=== PATIENT | male | born 1940 | race Hispanic/Latino ===

== ENCOUNTER → 2019-06-01 | Outpatient (CLI) | payer MEDICARE ==
[~2019-06-01] MED LIST: CYCL10TA2 PO; GABA300C10 PO; LISI10TA PO; MELO15TA24 PO; METF500T PO
--- NOTE | 2019-06-01 13:19 | DIREP ---
PROCEDURE:XRAY ABDOMEN SINGLE VW COMPARISON:[facility], CT, CT-ABDOMEN /PELVIS W W/O CONTRAST, 07/29/2012, 10:24 AM. INDICATIONS:RUQ PAIN, EPIGASTRIC PAIN FINDINGS: BOWEL GAS PATTERN:Nonobstructive. CALCIFICATIONS:None significant. LUNG BASES:Clear. BONES:Normal. OTHER:No free air. No additional findings. CONCLUSION:No acute abnormalities. Dictated by: Mickey Bledsoe M.D. on 06/01/2019 at 01:16 PM
--- NOTE | 2019-06-01 14:14 | DIREP ---
PROCEDURE:US ABDOMEN LIMITED(SINGLE ORGAN,QUAD) COMPARISON:None. INDICATIONS:RUQ PAIN, EPIGASTRIC PAIN FINDINGS: LIVER:Normal hepatic parenchymal architecture. BILIARY:The gallbladder wall is normal in thickness. There is a small echogenic density adherent to the gallbladder wall consistent with a small polyp. The common bile duct is normal measuring 4.2 mm. PANCREAS:The pancreas is obscured secondary to bowel gas. RIGHT KIDNEY:Normal. OTHER:Negative. No ascites is identified. CONCLUSION:There are findings consistent with a small polyp of the gallbladder wall. Dictated by: Esteban Lott M.D. on 06/01/2019 at 02:13 PM
== END | disposition home or self-care (01) ==
LOC: RAD 10:51
PROVIDERS: ATTEND Nurse Practitioner
DX: R10.11 Right upper quadrant pain (principal); R10.13 Epigastric pain
CPT/HCPCS: 74018; 76705

== ENCOUNTER → 2019-06-13 | Outpatient (CLI) | payer MEDICARE ==
--- NOTE | 2019-06-13 15:32 | DIREP ---
PROCEDURE:NM GALLBLADDER SCAN/NUNEZ COMPARISON:None. INDICATIONS:R10.11 RUQ PAIN TECHNIQUE:After obtaining the patient's consent, radiopharmaceutical was injected and images obtained sequentially for one hour. PHARMACEUTICAL(S):7.3 mCi Tc-99m KARLO derivative. 8 oz of Ensure Plus FINDINGS: LIVER:Normal. BILIARY DUCTS:Normal. Visualized at 10 minutes. GALLBLADDER:Normal. Visualized at 15 minutes INTESTINE:Normal. Visualized at 20 minutes EJECTION FRACTION:68 %. Normal is greater than 50% at 15-20 minutes, EF between 35%-50% is equivocal. Administration of Ensure Plus resulted in no additional symptoms. Fatty meal did not reproduce patient's symptoms. CONCLUSION: 1. Normal hepatobiliary scan and gallbladder ejection fraction measured at 68 %. Dictated by: Brandon Mccloud MD on 06/13/2019 at 03:30 PM
== END | disposition home or self-care (01) ==
LOC: RAD 09:54
PROVIDERS: ATTEND Nurse Practitioner
DX: R10.11 Right upper quadrant pain (principal)
CPT/HCPCS: 78227; A9537

== ENCOUNTER → 2019-06-15 | Outpatient (CLI) | payer MEDICARE ==
--- NOTE | 2019-06-15 14:07 | DIREP ---
PROCEDURE:CT ABDOMEN WITHOUT CONTRAST TECHNIQUE:No oral contrast was given. Axial cuts were obtained through the abdomen without IV contrast. The images were viewed at lung, liver, bone, and soft tissue settings. Sagittal and coronal reconstructions are provided. COMPARISON:[facility], CT, CT-ABDOMEN /PELVIS W W/O CONTRAST, 07/29/2012, 10:24 AM. INDICATIONS:ABD PAIN, WEIGHT LOSS FINDINGS: LOWER CHEST:Subsegmental atelectasis in the lung bases bilaterally BILIARY:Normal. PANCREAS:Normal. SPLEEN:Normal. KIDNEYS:No evidence of urinary calculi. No evidence of obstructive uropathy. Renal morphology appears unremarkable. ADRENALS:Normal. AORTA/VASCULAR:Atheromatous calcifications. RETROPERITONEUM:Normal. BOWEL/MESENTERY:Bowel evaluation is limited by the lack of oral contrast. No evidence of bowel obstruction, free intraperitoneal air, or abscess. The appendix is not visualized; however, no adjacent inflammatory changes are present to suggest acute appendicitis. ABDOMINAL WALL:Normal. PELVIS:Not included in the ordered field of view. BONES:Mild dextroscoliosis OTHER: The absence of IV contrast limits evaluation of the soft tissues. CONCLUSION:No acute intra-abdominal process demonstrated Dictated by: Shantelle Owen M.D. on 06/15/2019 at 01:56 PM
== END | disposition home or self-care (01) ==
LOC: RAD 10:05
PROVIDERS: ATTEND Nurse Practitioner
DX: R10.9 Unspecified abdominal pain (principal); R63.4 Abnormal weight loss; M41.80 Other forms of scoliosis, site unspecified
CPT/HCPCS: 74150